=== PATIENT | female | born 1960 | race Caucasian/White ===

== ENCOUNTER 2025-03-21 06:23 | Day surgery (SDC) | payer MEDICARE, SELFPAY | END 2025-03-21 14:34 | disposition home or self-care (01) | LOC: GI 06:23 | PROVIDERS: ATTENDING PHYSICIAN Internal Medicine Gastroenterology | DX: R12 Heartburn (principal); K44.9 Diaphragmatic hernia without obstruction or gangrene; K22.89 Other specified disease of esophagus; K31.7 Polyp of stomach and duodenum; K22.70 Barrett's esophagus without dysplasia | CPT/HCPCS: 43239; 88305 ==